=== PATIENT | female | born 1995 | race African-American/Black ===

== ENCOUNTER 2024-04-12 18:31 | Emergency (ER) | payer SELFPAY ==
[~2024-04-12] VITALS: Ht 167.6 cm; Wt 56.0 kg
[2024-04-12 18:44] VITALS: O2SAT 100
[2024-04-12] MEDS ORDERED: BO1 TP (20:20)
[2024-04-12 20:26] VITALS: BP 114/76; PULSE 80; RESP 16; TEMP 36.9; O2SAT 100
== END 2024-04-12 20:26 | disposition home or self-care (01) ==
LOC: ER 18:31
DX: S01.512A Laceration without foreign body of oral cavity, initial encounter (principal); Y04.0XXA Assault by unarmed brawl or fight, initial encounter; Y93.89 Activity, other specified; Y92.89 Other specified places as the place of occurrence of the external cause; Y99.8 Other external cause status
CPT/HCPCS: 99282